=== PATIENT | male | born 1995 | race African-American/Black ===

== ENCOUNTER 2018-10-06 22:44 | Emergency (ER) | payer SELFPAY ==
[2018-10-06 22:54] VITALS: BP 129/74; PULSE 95; TEMP 98.4; BMI 24.1
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
[2018-10-07] MEDS ORDERED: DIPHTH,PERTUSS(ACELL),TET 0.5 ML DISP.SYRIN IM ONE ×2 (00:17→00:24)
== END 2018-10-07 00:39 | disposition home or self-care (01) ==
LOC: JER 22:44
PROC: 08QPXZZ Repair Left Upper Eyelid, External Approach (ICD-10-PCS; principal; 2018-10-06)
DX: S01.112A Laceration without foreign body of left eyelid and periocular area, initial encounter (principal); Y04.2XXA Assault by strike against or bumped into by another person, initial encounter; Y93.9 Activity, unspecified; Y92.9 Unspecified place or not applicable; J45.909 Unspecified asthma, uncomplicated; F17.210 Nicotine dependence, cigarettes, uncomplicated
CPT/HCPCS: 90715; 99282-25

== ENCOUNTER 2018-10-14 13:18 | Emergency (ER) | payer SELFPAY ==
[2018-10-14 13:31] VITALS: BP 130/74; PULSE 85; TEMP 98.2; BMI 33.4
--- NOTE | 2018-10-14 13:59 | PDOC ---
History of Present Illness - General Chief Complaint: Suture/Staple Removal(Here) Stated Complaint: STITCH REMOVAL Time Seen by Provider: 10/14/18 13:51 - History of Present Illness Initial Comments: 10/14/18 13:56 23-year-old male presents for evaluation of suture removal over his left eyebrow he has no sequela since suture placement. Past History - Past Medical History Allergies/Adverse Reactions: Allergies Allergy/AdvReac Type Severity Reaction Status Date / Time No Known Allergies Allergy Verified 10/07/18 00:25 Home Medications: Ambulatory Orders No Home Medications 0 dose .ROUTE UTDICT 01/27/13 Asthma: Yes COPD: No - Immunization History Immunization Up to Date: Yes - Suicide/Smoking/Psychosocial Hx Smoking Status: No Smoking History: Never smoked Have you smoked in the past 12 months: No Number of Cigarettes Smoked Daily: 3 Information on smoking cessation initiated: No Hx Alcohol Use: No Drug/Substance Use Hx: No Review of Systems - Review of Systems Integumentary: Yes: See HPI *Physical Exam - Vital Signs Last Vital Signs Temp Pulse Resp BP Pulse Ox 98.2 F 85 20 130/74 100 10/14/18 13:29 10/14/18 13:29 10/14/18 13:29 10/14/18 13:29 10/14/18 13:29 - Physical Exam Comments: 10/14/18 13:57 Left eyebrow wound is 1 cm well-healed 3 Prolene sutures are in place normal skin color and temperature. Moderate Sedation - Procedure Monitoring Vital Signs: Procedure Monitoring Vital Signs Temperature 98.2 F 10/14/18 13:29 Pulse Rate 85 10/14/18 13:29 Respiratory Rate 20 10/14/18 13:29 Blood Pressure 130/74 10/14/18 13:29 O2 Sat by Pulse Oximetry (%) 100 10/14/18 13:29 Medical Decision Making - Medical Decision Making 10/14/18 13:57 3 Prolene sutures were removed with needle log driver and an 11 blade without complication. The wound edges are well healed scar to approximated well. *DC/Admit/Observation/Transfer Diagnosis at time of Disposition: Visit for suture removal - Discharge Dispostion Disposition: HOME Condition at time of disposition: Stable Decision to Admit order: No - Referrals - Patient Instructions Printed Discharge Instructions: DI for Suture Removal Additional Instructions: Return to the emergency room should you have any further issues. He may wash the area with soap and water and leave it open to air. If there is any drainage redness or swelling around the area he may return to the emergency room - Post Discharge Activity
== END 2018-10-14 14:00 | disposition home or self-care (01) ==
LOC: JERFT 13:18
DX: Z48.817 Encounter for surgical aftercare following surgery on the skin and subcutaneous tissue (principal); Z48.02 Encounter for removal of sutures
CPT/HCPCS: 99281-25

== ENCOUNTER 2023-04-19 11:23 | Emergency (ER) | payer SELFPAY ==
[2023-04-19 11:36] VITALS: BP 128/89; PULSE 90; RESP 20; TEMP 98.2; BMI 28.1
== END 2023-04-19 14:03 | disposition home or self-care (01) ==
LOC: JER 11:23
DX: M25.562 Pain in left knee (principal); L98.9 Disorder of the skin and subcutaneous tissue, unspecified; S81.802D Unspecified open wound, left lower leg, subsequent encounter; X58.XXXD Exposure to other specified factors, subsequent encounter
CPT/HCPCS: 73562-TC-LT-FY; 99283-25